=== PATIENT | female | born 1980 | race African-American/Black ===

== ENCOUNTER 2023-09-28 02:56 | Emergency (ER) | payer OTHER ==
[~2023-09-28] VITALS: Ht 154.9 cm; Wt 79.4 kg
[2023-09-28] MEDS ORDERED: IPRATROPIUM/ALBUTEROL 0.5-3(2.5)MG/3ML NEB HHN NR (03:30)
[2023-09-28] MEDS ORDERED: SODIUM CHLORIDE 0.9% 1,000 ML IV NR (03:30)
[2023-09-28 03:49] VITALS: PULSE 78; RESP 22; O2SAT 95
[2023-09-28] MEDS: ALBUTEROL (0.5%) 2.5MG/0.5ML NEB HHN NR (03:49)
[2023-09-28] MEDS: ACETAMINOPHEN 325MG TABLET PO NR (04:30)
[2023-09-28] MEDS: PREDNISONE 20MG TABLET PO NR (04:30)
[2023-09-28] MEDS ORDERED: IPRA3AMP31 NEB (05:22)
[2023-09-28] MEDS: IPRATROPIUM BROMIDE (0.02%) 0.5MG/2.5ML NEB HHN STA (05:22)
[2023-09-28 05:45] VITALS: BP 121/75; PULSE 72; RESP 16; TEMP 98.4
[2023-09-28 06:55] LABS: BASOPHILS % 0.7 % (0.0-2.0); DIFFERENTIAL COMMENT 0; EOSINOPHILS % 5.5 % (0.0-5.0); HEMATOCRIT. 35.8 % (36.0-48.0); HEMOGLOBIN. 11.2 g/dL (12.0-16.0); MEAN CORPUSCULAR HEMOGLOBIN 23.5 pg (28.0-32.0); MEAN CORPUSCULAR HGB CONC 31.3 g/dL (31.0-37.0); MEAN PLATELET VOLUME 9.6 fl (7.4-10.4); NEUTROPHILS % 47.8 % (40.0-76.0); PLATELET 194 x1000/uL (130-400); RED BLOOD CELL COUNT 4.78 mill/uL (4.2-5.4); WHITE BLOOD COUNT 5.9 x1000/uL (4.5-11.0)
[2023-09-28 07:56] LABS: CARBON DIOXIDE 26 mEq/L (21-32); CHLORIDE 106 mEq/L (98-107); POTASSIUM 3.3 mEq/L (3.5-5.1); SODIUM 141 mEq/L (136-145); UREA NITROGEN BLOOD 15 mg/dL (9-23)
== END 2023-09-28 06:00 | disposition home or self-care (01) ==
LOC: ER 02:56
DX: J45.901 Unspecified asthma with (acute) exacerbation (principal)
CPT/HCPCS: 80051; 82565; 84520; 85025; 36415; 94644; 99285; J7512; Z7610 ×4

== ENCOUNTER 2024-07-24 03:51 | Emergency (ER) | payer OTHER ==
[~2024-07-24] VITALS: Ht 165.1 cm; Wt 80.0 kg
[~2024-07-24 03:51] MED LIST: IPRA3AMP31 NEB
[2024-07-24 03:52] VITALS: RESP 21
[2024-07-24 04:00] VITALS: O2SAT 90
[2024-07-24 04:14] LABS: BG BASE EXCESS -4.4 mmol/L (-2.0-3.0); BG CARBOXYHEMOGLOBIN 0.1 % (0.5-1.5); BG DEOXYHEMOGLOBIN 0.3 % (0.0-5.0); BG FRACTION INSPIRED OXYGEN 100; BG HCO3 ACT 19.9 mmol/L (21.0-28.0); BG METHEMOGLOBIN 0.1 % (0.5-1.5); BG OXYGEN SATURATION 99.7 % (94.0-98.0); BG OXYHEMOGLOBIN 99.5 % (94.0-98.0); BG PCO2 34.3 mmHg (32.0-45.0); BG PH 7.382 (7.350-7.450); BG PO2 580.1 mmHg (83.0-108.0); BG SAMPLE SITE RIGHT RADIAL; BG TOTAL HEMOGLOBIN 12.7 g/dL (12.0-16.0); BG TOTAL RESPIRATORY RATE 19 b/min; BG VENT MODE MASK - BIPAP
[2024-07-24] MEDS ORDERED: METHYLPREDNISOLONE SOD SUCC 125MG/2ML (ACT-O-VIAL) IV STA (04:23)
[2024-07-24] MEDS ORDERED: IPRATROPIUM BROMIDE (0.02%) 0.5MG/2.5ML NEB HHN NR (04:30)
[2024-07-24 04:34] LABS: BASOPHILS % 0.6 % (0.0-2.0); DIFFERENTIAL COMMENT 0; EOSINOPHILS % 8.6 % (0.0-5.0); HEMATOCRIT. 38.1 % (36.0-48.0); LYMPHOCYTES % 42.4 % (20.0-50.0); MEAN CORPUSCULAR HEMOGLOBIN 24.1 pg (28.0-32.0); MEAN CORPUSCULAR HGB CONC 31.6 g/dL (31.0-37.0); MEAN CORPUSCULAR VOLUME 76.1 fL (81.0-99.0); MEAN PLATELET VOLUME 9.9 fl (7.4-10.4); MONOCYTES % 7.9 % (2.0-8.0); NEUTROPHILS % 40.5 % (40.0-76.0); PLATELET 255 x1000/uL (130-400); RED BLOOD CELL COUNT 5.01 mill/uL (4.2-5.4); RED CELL DISTRIBUTION WIDTH 13.9 % (11.6-14.6); WHITE BLOOD COUNT 9.6 x1000/uL (4.5-11.0)
[2024-07-24 04:39] LABS: CHLORIDE 103 mEq/L (98-107); POTASSIUM 3.8 mEq/L (3.5-5.1); SODIUM 136 mEq/L (136-145)
[2024-07-24 04:40] LABS: CALCIUM 8.9 mg/dL (8.7-10.4); CARBON DIOXIDE 22 mEq/L (21-32)
[2024-07-24 04:45] LABS: GLUCOSE 187 mg/dL (70-105); UREA NITROGEN BLOOD 16 mg/dL (9-23)
[2024-07-24 04:46] LABS: INR 0.9; PARTIAL THROMBOPLASTIN TIME 22.8 sec (23.4-31.0); PROTHROMBIN TIME 10.5 sec (9.6-11.0)
[2024-07-24] MEDS ORDERED: ALBUTEROL (0.083%) 2.5MG/3ML NEB ONE (04:46)
[2024-07-24 04:50] VITALS: RESP 18
[2024-07-24] MEDS: IPRATROPIUM BROMIDE (0.02%) 0.5MG/2.5ML NEB HHN STA (04:50)
[2024-07-24] MEDS: MAGNESIUM 2 G PREMIX 50 ML IV ONE (04:51)
[2024-07-24] MEDS: METHYLPREDNISOLONE SOD SUCC 125MG/2ML (ACT-O-VIAL) IV NR (04:52)
[2024-07-24] MEDS: METHYLPREDNISOLONE SOD SUCC 125MG/2ML (ACT-O-VIAL) IV STA (04:52)
[2024-07-24 05:11] LABS: ETHANOL BLOOD < 10 mg/dL (<10); TROPONIN I HIGH SENSITIVITY < 4 ng/L (3.0-34)
[2024-07-24 05:12] LABS: CREATININE 1.4 mg/dL (0.6-1.0)
[2024-07-24 05:20] LABS: LACTIC ACID 6.2 mmol/L (0.4-2.0)
[2024-07-24 06:00] VITALS: BP 124/75; PULSE 82; RESP 13; O2SAT 100
[2024-07-24 06:04] LABS: HCG SCREEN NEGATIVE
== END 2024-07-24 06:05 | disposition left against medical advice (07) ==
LOC: ER 03:51
DX: J96.90 Respiratory failure, unspecified, unspecified whether with hypoxia or hypercapnia (principal); J45.901 Unspecified asthma with (acute) exacerbation
CPT/HCPCS: 80048; 80320; 84703; 83880; 83605; 85025; 85610; 85730; 87040; 84484; 36415; 71045; 94640; 82805; 82375; 94660; 96365; 96375; 99284; 36600; J3475; J2919; Z7610 ×2; G0480